=== PATIENT | female | born 1940 | race Hispanic/Latino ===

== ENCOUNTER 2019-06-28 06:45 | Day surgery (SDC) | payer OTHER ==
[2019-06-27 14:55] VITALS: BP 168/90
[2019-06-27 15:14] LABS: BASOPHILS % (AUTO) 1.1 % (0.0-5.0); EOSINOPHILS % (AUTO) 2.4 % (0.0-8.0); LYMPHOCYTES % (AUTO) 30.1 % (21.0-51.0); MEAN CORPUSCULAR HEMOGLOBIN 28.2 pg (27.0-33.0); MEAN CORPUSCULAR HGB CONC 33.2 g/dL (32.0-36.0); MEAN CORPUSCULAR VOLUME 84.7 fL (79-99); MONOCYTES % (AUTO) 8.9 % (3.0-13.0); NEUTROPHILS % (AUTO) 57.5 % (40.0-77.0); NUCLEATED RED BLOOD CELLS 0.1 % (0.0-0.19); PLATELET COUNT (AUTO) 209 K/uL (130-400); RED BLOOD CELL COUNT(AUTO) 4.01 MIL/uL (4.00-5.50); RED CELL DISTRIBUTION WIDTH 15.6 % (11.0-15.5); WHITE BLOOD COUNT (AUTO) 5.2 K/uL (4.8-10.8)
[2019-06-27 15:22] LABS: CREATININE 1.4 mg/dL (0.5-1.5); POTASSIUM 5.3 mmol/L (3.5-5.1)
[2019-06-27 15:39] LABS: PARTIAL THROMBOPLASTIN TIME 28.9 SEC (26.3-35.5); PROTHROMBIN TIME 10.5 SEC (9.6-11.6)
--- NOTE | 2019-06-27 15:46 | NUR ---
ADVISED PHIL MCKEON ABOUT PT POSSIBLE TAKING XARELTO TODAY DESPITE ORDERS INDICATE PT SHOULD NOT TAKE THE DAY BEFORE PROCEDURE, PER LINDA OKAY TO PROCEED. I ALSO ADVISED HER THAT PT GOT STARTED ON AMiodarone 100mg on june 22, 2019 due to being in the hospital, okay to proceed
--- NOTE | 2019-06-27 16:13 | NUR ---
ABNORMAL LABS CALLED DR. CALVILLO'S OFFICE TO REPORT ABNORMAL LABS, SPOKE TO HARINDER CALVILLO NURSE, ABNORMAL LABS REPORTED TO DR. CALVILLO BY HARINDER, NO FURTHER ORDERS GIVEN BY DR. CALVILLO, MAY PROCEED WITH PLANNED PROCEDURE. Addendum: 06/27/19 at 1616 by PAPO DUBOIS RN RN POTASSIUM 5.3, CREAT 1.4, H/H 11.3/34.0
[~2019-06-28] VITALS: Ht 165.1 cm; Wt 63.4 kg
[2019-06-28] VITALS (7 sets, daily range): BP systolic 112–170; BP diastolic 52–85
[~2019-06-28 06:45] MED LIST: AMIO100T4 PO; ASPI-555 PO; ATOR40TA71 PO; GLIP2.5T2 PO; LEVO75TA10 PO; RIVA15TA PO; SACU1TAB7 PO; SODIUM CHLORIDE 0.9% 1000ML 1,000 ML IV SCH
[2019-06-28] MEDS ORDERED: HEPARIN SODIUM 1000UNIT/ML 10ML VIAL ONE (12:19)
[2019-06-28] MEDS ORDERED: LIDOCAINE HCL 2% 20ML ONE ×2 (12:19→13:23)
--- NOTE | 2019-06-28 12:25 | NUR ---
procedure pt taken to dental laboratory supervisor for scheduled procedure. daughter at bedside.
[2019-06-28] MEDS ORDERED: MEPERIDINE-PF 25 MG/ML SYG ONE (12:46)
[2019-06-28] MEDS ORDERED: MIDAZOLAM HCL 1 MG/ML 2ML VIAL ONE (12:46)
[2019-06-28] MEDS ORDERED: IOHEXOL-350 50ML VIAL IV ONE (14:07)
--- NOTE | 2019-06-28 15:15 | NUR ---
PT. RECEIVED FROM [employer] SUPERVISOR. V/S STABLE BED REST 3 HRS.
[2019-06-28] MEDS ORDERED: RIVA15TA PO (16:21)
--- NOTE | 2019-06-28 18:15 | NUR ---
PT. V/S STABLE NO HEMATOMA, NO BLEEDING, NO PAIN PULSES INTACT. PT LEFT VIA WHEELCHAIR IN PVT CAR WITH DAUGHTER AND SPOUSE. F/U APPT. SCHEDULED WITH D/C INSTRUCTIONS GIVEN TO DAUGHTER.
== END 2019-06-28 18:15 ==
LOC: DAH 06:45
PROVIDERS: ATTEND Internal Medicine Cardiovascular Disease
DX: I48.92 Unspecified atrial flutter (principal); I82.591 Chronic embolism and thrombosis of other specified deep vein of right lower extremity; I50.9 Heart failure, unspecified; F03.90 Unspecified dementia, unspecified severity, without behavioral disturbance, psychotic disturbance, mood disturbance, and anxiety; I25.10 Atherosclerotic heart disease of native coronary artery without angina pectoris; Z79.84 Long term (current) use of oral hypoglycemic drugs; Z79.01 Long term (current) use of anticoagulants; Z79.82 Long term (current) use of aspirin; Z79.899 Other long term (current) drug therapy; Z90.710 Acquired absence of both cervix and uterus; Z98.890 Other specified postprocedural states; Z82.49 Family history of ischemic heart disease and other diseases of the circulatory system
CPT/HCPCS: 36415; 80048; 82948 ×2; 85025; 85610; 85730; 93613; 93621; 93653; 93971; A4215 ×2; A4216 ×2; A4221 ×2; A4222 ×2; A4223 ×6; A4606 ×2; A4649 ×2; C1730; C1732; C1894 ×4; J1644 ×2; J2175; J2250; J3490 ×2; J7030; Q9967; 99156; 99157